=== PATIENT | female | born 1970 | race Caucasian/White ===

== ENCOUNTER 2017-12-10 07:41 | Emergency (ER) | payer MEDICAID ==
[2017-12-10] MEDS: SOD CHLORIDE 0.9% 1,000 ML IV (08:12)
[2017-12-10] MEDS: ONDANSETRON 4 MG INJ IV (08:12)
[2017-12-10] MEDS: morphine 4 MG/ML VIAL IV (08:13)
[2017-12-10 08:31] LABS: ADD MAN DIFF? NO
[2017-12-10 08:36] LABS: WHITE BLOOD COUNT 7.1 10^3/ul (4.8-10.8)
[2017-12-10 08:36] LABS: BASOPHIL # 0.1 10^3/ul (0.0-0.1); BASOPHILS % 0.7 % (0.0-2.0); EOSINOPHILS # 0.3 10^3/ul (0.0-0.5); EOSINOPHILS % 3.8 % (0.0-7.0); HEMATOCRIT 41.6 % (37.0-47.0); LYMPHOCYTES # 2.1 10^3/ul (0.8-2.9); LYMPHOCYTES % 29.5 % (15.0-51.0); MEAN CORPUSCULAR HEMOGLOBIN 29.5 pg (29.0-33.0); MEAN CORPUSCULAR HGB CONC 33.7 g/dl (32.0-37.0); MEAN CORPUSCULAR VOLUME 87.6 fl (82.0-101.0); MEAN PLATELET VOLUME 11.9 fl (7.4-10.4); MONOCYTE # 0.6 10^3/ul (0.3-0.9); MONOCYTES % 8.3 % (0.0-11.0); NEUTROPHIL # 4.1 10^3/ul (1.6-7.5); NEUTROPHILS % 57.4 % (39.0-77.0); PLATELET COUNT 204 10^3/UL (140-415); RED BLOOD COUNT 4.75 10^6/ul (4.20-5.40)
[2017-12-10 08:48] LABS: ADD UMIC NO; UR ASCORBIC ACID NEGATIVE (NEGATIVE); UR BILIRUBIN (Dip) NEGATIVE (NEGATIVE); UR BLOOD (Dip) NEGATIVE (NEGATIVE); UR CLARITY CLEAR (CLEAR); UR COLOR STRAW (YELLOW); UR GLUCOSE (Dip) NEGATIVE (NEGATIVE); UR KETONES (Dip) NEGATIVE (NEGATIVE); UR LEUKOCYTE ESTERASE (Dip) NEGATIVE Leu/ul (NEGATIVE); UR NITRITE (Dip) NEGATIVE (NEGATIVE); UR SPECIFIC GRAVITY (Dip) 1.006 (1.003-1.030); UR TOTAL PROTEIN (Dip) NEGATIVE (NEGATIVE); UR UROBILINOGEN (Dip) NEGATIVE (NEGATIVE)
[2017-12-10 09:01] LABS: ALANINE AMINOTRANSFERASE 42 IU/L (13-69); ALBUMIN 4.6 g/dl (3.3-4.9); ALBUMIN/GLOBULIN RATIO 1.24; ALKALINE PHOSPHATASE 82 IU/L (42-121); ANION GAP 14 (8-16); ASPARTATE AMINO TRANSFERASE 20 IU/L (15-46); BILIRUBIN,INDIRECT 0.4 mg/dl (0-1.1); BILIRUBIN,TOTAL 0.4 mg/dl (0.2-1.3); BLOOD UREA NITROGEN 13 mg/dl (7-20); CALCIUM 9.5 mg/dl (8.4-10.2); CARBON DIOXIDE 28 mmol/L (21-31); CHLORIDE 107 mmol/L (97-110); CREATININE 0.69 mg/dl (0.44-1.00); GLUCOSE 112 mg/dl (70-220); LIPASE 67 U/L (23-300); POTASSIUM 4.9 mmol/L (3.5-5.1); SODIUM 144 mmol/L (135-144); TOTAL PROTEIN 8.3 g/dl (6.1-8.1)
[2017-12-10 09:16] LABS: TROPONIN-I < 0.012 ng/ml (0.000-0.120)
== END 2017-12-10 10:30 | disposition home or self-care (01) ==
LOC: FTE 07:41
DX: R10.12 Left upper quadrant pain (principal); R10.2 Pelvic and perineal pain
CPT/HCPCS: 36415; 74176; 80053; 81003; 83690; 84484; 84703; 85025; 93005; 96374; 96375; 99285-25

== ENCOUNTER 2017-12-11 09:18 | Inpatient (IN) | payer MEDICAID ==
[2017-12-11] MEDS: FAMOTIDINE 20 MG TAB PO ×2 (10:08→20:53)
[2017-12-11] MEDS: LIDOCAINE/MYLANTA 40 ML BTL PO (10:08)
[2017-12-11] MEDS: BELLADONNA/PHENOBARBITAL TAB PO (10:08)
[2017-12-11 10:49] LABS: ADD MAN DIFF? NO
[2017-12-11 10:56] LABS: WHITE BLOOD COUNT 6.5 10^3/ul (4.8-10.8)
[2017-12-11 10:56] LABS: BASOPHILS % 0.6 % (0.0-2.0); EOSINOPHILS # 0.2 10^3/ul (0.0-0.5); EOSINOPHILS % 3.4 % (0.0-7.0); HEMATOCRIT 39.1 % (37.0-47.0); HEMOGLOBIN 13.5 g/dl (12.0-16.0); LYMPHOCYTES # 2.4 10^3/ul (0.8-2.9); LYMPHOCYTES % 36.1 % (15.0-51.0); MEAN CORPUSCULAR HEMOGLOBIN 29.8 pg (29.0-33.0); MEAN CORPUSCULAR HGB CONC 34.5 g/dl (32.0-37.0); MEAN CORPUSCULAR VOLUME 86.3 fl (82.0-101.0); MEAN PLATELET VOLUME 12.1 fl (7.4-10.4); MONOCYTE # 0.5 10^3/ul (0.3-0.9); NEUTROPHIL # 3.4 10^3/ul (1.6-7.5); NEUTROPHILS % 52.7 % (39.0-77.0); PLATELET COUNT 208 10^3/UL (140-415); RED BLOOD COUNT 4.53 10^6/ul (4.20-5.40); RED CELL DISTRIBUTION WIDTH 12.6 % (11.5-14.5)
[2017-12-11 10:59] LABS: ADD UMIC NO; UR ASCORBIC ACID NEGATIVE (NEGATIVE); UR BILIRUBIN (Dip) NEGATIVE (NEGATIVE); UR BLOOD (Dip) NEGATIVE (NEGATIVE); UR CLARITY CLEAR (CLEAR); UR COLOR STRAW (YELLOW); UR GLUCOSE (Dip) NEGATIVE (NEGATIVE); UR KETONES (Dip) NEGATIVE (NEGATIVE); UR LEUKOCYTE ESTERASE (Dip) NEGATIVE Leu/ul (NEGATIVE); UR NITRITE (Dip) NEGATIVE (NEGATIVE); UR SPECIFIC GRAVITY (Dip) 1.006 (1.003-1.030); UR TOTAL PROTEIN (Dip) NEGATIVE (NEGATIVE); UR UROBILINOGEN (Dip) NEGATIVE (NEGATIVE)
[2017-12-11 11:08] LABS: ALANINE AMINOTRANSFERASE 35 IU/L (13-69); ALBUMIN 4.4 g/dl (3.3-4.9); ALBUMIN/GLOBULIN RATIO 1.22; ALKALINE PHOSPHATASE 73 IU/L (42-121); ANION GAP 12 (8-16); ASPARTATE AMINO TRANSFERASE 19 IU/L (15-46); BILIRUBIN,INDIRECT 0.7 mg/dl (0-1.1); BILIRUBIN,TOTAL 0.7 mg/dl (0.2-1.3); BLOOD UREA NITROGEN 12 mg/dl (7-20); CALCIUM 9.6 mg/dl (8.4-10.2); CARBON DIOXIDE 22 mmol/L (21-31); CHLORIDE 109 mmol/L (97-110); CREATININE 0.67 mg/dl (0.44-1.00); GLUCOSE 92 mg/dl (70-220); LIPASE 73 U/L (23-300); POTASSIUM 4.2 mmol/L (3.5-5.1); SODIUM 139 mmol/L (135-144)
[2017-12-11 11:22] LABS: TROPONIN-I < 0.012 ng/ml (0.000-0.120)
[2017-12-11] MEDS: PIPER-TAZO 3.375 GM IV (PMX) 100 ML IVPB (12:12)
[2017-12-11] MEDS: SOD CHLORIDE 0.9% 1,000 ML IV (12:12)
[2017-12-11] MEDS: morphine 2 MG INJ IV (12:12)
[2017-12-11 13:59] LABS: INR 0.86; PROTIME 11.8 Sec (11.9-14.9); PT RATIO 0.9
[2017-12-11 14:00] LABS: PARTIAL THROMBOPLASTIN TIME 29.5 Sec (25.0-35.0)
[2017-12-11] MEDS ORDERED: DOCUSATE SODIUM 100 MG CAP PO (14:00)
[2017-12-11] MEDS ORDERED: hydrALAzine 20 MG INJ IV (14:00)
[2017-12-11] MEDS ORDERED: NACL 0.9% 3 ML SYG IV (14:00)
[2017-12-11] MEDS ORDERED: NITROGLYCERIN (SL) 0.4 MG TAB SL (14:00)
[2017-12-11] MEDS ORDERED: LORAZEPAM 0.5 MG TAB PO (14:00)
[2017-12-11] MEDS ORDERED: ACETAMINOPHEN 325 MG TAB PO ×2 (14:00)
[2017-12-11] MEDS ORDERED: ALBUTEROL/IPRATROPIUM (NEB) 3 ML AMP HHN (14:00)
[2017-12-11] MEDS ORDERED: MAGNESIUM HYDROXIDE 30ML CUP PO (14:00)
[2017-12-11] MEDS ORDERED: ONDANSETRON 4 MG INJ IV ×2 (14:00)
[2017-12-11] MEDS ORDERED: HYDROCODONE/APAP (5/325) TAB PO (14:00)
[2017-12-11] MEDS ORDERED: NA PHOSPHATE/BIPHOS 133 ML ENEMA PR (14:00)
[2017-12-11 14:20] LABS: FREE T4 (FREE THYROXINE) 1.01 ng/dl (0.64-1.79)
[2017-12-11] MEDS: morphine LIQ (10 MG/5 ML) CUP PO ×2 (14:54→19:19)
[2017-12-11] MEDS: SOD CHLORIDE 0.45% 1,000 ML IV (15:20)
[2017-12-11] MEDS: HEPARIN 5,000 UNIT/0.5 ML VIAL SC (20:53)
[2017-12-12] MEDS: SOD CHLORIDE 0.45% 1,000 ML IV ×3 (03:00→18:27)
[2017-12-12 05:10] LABS: ADD MAN DIFF? NO
[2017-12-12 05:28] LABS: ANION GAP 16 (8-16); BLOOD UREA NITROGEN 10 mg/dl (7-20); CALCIUM 9.2 mg/dl (8.4-10.2); CARBON DIOXIDE 26 mmol/L (21-31); CHLORIDE 105 mmol/L (97-110); CREATININE 0.67 mg/dl (0.44-1.00); GLUCOSE 93 mg/dl (70-220); PHOSPHORUS 3.9 mg/dl (2.5-4.9); POTASSIUM 4.2 mmol/L (3.5-5.1); SODIUM 143 mmol/L (135-144)
[2017-12-12 05:31] LABS: BASOPHILS % 0.4 % (0.0-2.0); EOSINOPHILS # 0.3 10^3/ul (0.0-0.5); EOSINOPHILS % 3.5 % (0.0-7.0); HEMATOCRIT 41.1 % (37.0-47.0); HEMOGLOBIN 13.8 g/dl (12.0-16.0); LYMPHOCYTES # 1.9 10^3/ul (0.8-2.9); LYMPHOCYTES % 26.5 % (15.0-51.0); MEAN CORPUSCULAR HEMOGLOBIN 29.4 pg (29.0-33.0); MEAN CORPUSCULAR HGB CONC 33.6 g/dl (32.0-37.0); MEAN CORPUSCULAR VOLUME 87.6 fl (82.0-101.0); MEAN PLATELET VOLUME 11.8 fl (7.4-10.4); MONOCYTE # 0.5 10^3/ul (0.3-0.9); MONOCYTES % 7.6 % (0.0-11.0); NEUTROPHIL # 4.4 10^3/ul (1.6-7.5); NEUTROPHILS % 61.9 % (39.0-77.0); PLATELET COUNT 206 10^3/UL (140-415); RED BLOOD COUNT 4.69 10^6/ul (4.20-5.40); RED CELL DISTRIBUTION WIDTH 12.5 % (11.5-14.5)
[2017-12-12 05:31] LABS: WHITE BLOOD COUNT 7.1 10^3/ul (4.8-10.8)
[2017-12-12 05:32] LABS: CHOL/HDL RATIO 3.5 RATIO; HDL CHOLESTEROL 45 mg/dl (37-92); LDL CHOLESTEROL,CALCULATED 90 mg/dl; TRIGLYCERIDES 125 mg/dl (0-149)
[2017-12-12 05:32] LABS: CHOLESTEROL 160 mg/dl (100-200)
[2017-12-12] MEDS: morphine LIQ (10 MG/5 ML) CUP PO ×3 (06:09→17:38)
[2017-12-12] MEDS: HEPARIN 5,000 UNIT/0.5 ML VIAL SC ×2 (08:41→21:45)
[2017-12-12] MEDS: FAMOTIDINE 20 MG TAB PO ×2 (08:44→21:44)
[2017-12-12 10:44] LABS: HEMOGLOBIN A1C 5.7 % (0-5.9)
[2017-12-12] MEDS ORDERED: ONDANSETRON 4 MG INJ IV (13:30)
[2017-12-12] MEDS: IOHEXOL 14.3 MG(I)/ML (ADULT) BTL PO (17:30)
[2017-12-12] MEDS: SOD CHLORIDE 0.9% 100 ML (19:54)
[2017-12-12] MEDS: IOHEXOL 300MG/ML 150 ML BTL (19:54)
[2017-12-13 05:24] LABS: ADD MAN DIFF? NO
[2017-12-13 05:36] LABS: HEMATOCRIT 41.4 % (37.0-47.0); HEMOGLOBIN 14.2 g/dl (12.0-16.0); LYMPHOCYTES % 23.5 % (15.0-51.0); MEAN CORPUSCULAR HEMOGLOBIN 29.8 pg (29.0-33.0); MEAN CORPUSCULAR HGB CONC 34.3 g/dl (32.0-37.0); MEAN CORPUSCULAR VOLUME 86.8 fl (82.0-101.0); MEAN PLATELET VOLUME 11.5 fl (7.4-10.4); NEUTROPHILS % 64.3 % (39.0-77.0); PLATELET COUNT 206 10^3/UL (140-415); RED BLOOD COUNT 4.77 10^6/ul (4.20-5.40); RED CELL DISTRIBUTION WIDTH 12.2 % (11.5-14.5)
[2017-12-13 05:36] LABS: WHITE BLOOD COUNT 7.6 10^3/ul (4.8-10.8)
[2017-12-13 05:37] LABS: BASOPHILS % 0.5 % (0.0-2.0); EOSINOPHILS # 0.2 10^3/ul (0.0-0.5); LYMPHOCYTES # 1.8 10^3/ul (0.8-2.9); MONOCYTE # 0.6 10^3/ul (0.3-0.9); MONOCYTES % 8.4 % (0.0-11.0); NEUTROPHIL # 4.9 10^3/ul (1.6-7.5)
[2017-12-13 05:42] LABS: ANION GAP 19 (8-16); BLOOD UREA NITROGEN 10 mg/dl (7-20); CALCIUM 9.2 mg/dl (8.4-10.2); CARBON DIOXIDE 24 mmol/L (21-31); CHLORIDE 107 mmol/L (97-110); CREATININE 0.67 mg/dl (0.44-1.00); GLUCOSE 81 mg/dl (70-220); SODIUM 141 mmol/L (135-144)
[2017-12-13 06:32] LABS: POTASSIUM 8.8 mmol/L (3.5-5.1)
[2017-12-13 07:51] LABS: ANION GAP 17 (8-16); BLOOD UREA NITROGEN 10 mg/dl (7-20); CALCIUM 9.2 mg/dl (8.4-10.2); CARBON DIOXIDE 22 mmol/L (21-31); CHLORIDE 107 mmol/L (97-110); CREATININE 0.65 mg/dl (0.44-1.00); GLUCOSE 79 mg/dl (70-220); SODIUM 141 mmol/L (135-144)
[2017-12-13 07:59] LABS: POTASSIUM 5.2 mmol/L (3.5-5.1)
[2017-12-13 08:09] LABS: B-TYPE NATRIURETIC PEPTIDE < 11 PG/ML (0-125)
[2017-12-13] MEDS: FAMOTIDINE 20 MG TAB PO ×2 (09:20→20:59)
[2017-12-13] MEDS: HEPARIN 5,000 UNIT/0.5 ML VIAL SC ×2 (09:23→21:04)
[2017-12-13] MEDS: DEXTROSE 50% 50 ML SYRINGE IV (10:58)
[2017-12-13] MEDS: NA POLYST SULFON 15 GM/60 ML BTL PO ×2 (10:59→19:25)
[2017-12-13] MEDS: SOD CHLORIDE 0.45% 1,000 ML IV (11:04)
[2017-12-13 12:52] LABS: ALANINE AMINOTRANSFERASE 36 IU/L (13-69); ALBUMIN 4.6 g/dl (3.3-4.9); ALKALINE PHOSPHATASE 74 IU/L (42-121); ASPARTATE AMINO TRANSFERASE 26 IU/L (15-46); BILIRUBIN,INDIRECT 0.5 mg/dl (0-1.1); BILIRUBIN,TOTAL 0.5 mg/dl (0.2-1.3); TOTAL PROTEIN 7.7 g/dl (6.1-8.1)
[2017-12-13 17:12] LABS: ANION GAP 18 (8-16); BLOOD UREA NITROGEN 10 mg/dl (7-20); CALCIUM 9.3 mg/dl (8.4-10.2); CARBON DIOXIDE 21 mmol/L (21-31); CHLORIDE 108 mmol/L (97-110); CREATININE 0.62 mg/dl (0.44-1.00); GLUCOSE 89 mg/dl (70-220); POTASSIUM 5.3 mmol/L (3.5-5.1); SODIUM 142 mmol/L (135-144)
[2017-12-13] MEDS: morphine LIQ (10 MG/5 ML) CUP PO (19:14)
[2017-12-13 20:15] LABS: OCCULT BLOOD STOOL NEGATIVE (NEGATIVE)
[2017-12-14] MEDS: SOD CHLORIDE 0.45% 1,000 ML IV (00:39)
[2017-12-14 05:37] LABS: ADD MAN DIFF? NO
[2017-12-14 05:39] LABS: BASOPHILS % 0.4 % (0.0-2.0); EOSINOPHILS # 0.1 10^3/ul (0.0-0.5); EOSINOPHILS % 1.6 % (0.0-7.0); HEMATOCRIT 41.3 % (37.0-47.0); HEMOGLOBIN 14.2 g/dl (12.0-16.0); LYMPHOCYTES # 1.9 10^3/ul (0.8-2.9); LYMPHOCYTES % 23.4 % (15.0-51.0); MEAN CORPUSCULAR HEMOGLOBIN 29.5 pg (29.0-33.0); MEAN CORPUSCULAR HGB CONC 34.4 g/dl (32.0-37.0); MEAN CORPUSCULAR VOLUME 85.7 fl (82.0-101.0); MEAN PLATELET VOLUME 11.5 fl (7.4-10.4); MONOCYTE # 0.7 10^3/ul (0.3-0.9); MONOCYTES % 8.4 % (0.0-11.0); NEUTROPHIL # 5.3 10^3/ul (1.6-7.5); NEUTROPHILS % 65.9 % (39.0-77.0); PLATELET COUNT 233 10^3/UL (140-415); RED BLOOD COUNT 4.82 10^6/ul (4.20-5.40); RED CELL DISTRIBUTION WIDTH 12.6 % (11.5-14.5)
[2017-12-14 06:11] LABS: ANION GAP 16 (8-16); BLOOD UREA NITROGEN 10 mg/dl (7-20); CALCIUM 9.1 mg/dl (8.4-10.2); CARBON DIOXIDE 23 mmol/L (21-31); CHLORIDE 108 mmol/L (97-110); GLUCOSE 108 mg/dl (70-220); POTASSIUM 4.1 mmol/L (3.5-5.1); SODIUM 143 mmol/L (135-144)
[2017-12-14] MEDS: FAMOTIDINE 20 MG TAB PO (09:29)
[2017-12-14] MEDS: HEPARIN 5,000 UNIT/0.5 ML VIAL SC (09:31)
[2017-12-14 17:10] LABS: HEPATITIS B SURFACE ANTIGEN NEGATIVE (NEGATIVE)
[2017-12-14 17:37] LABS: HEPATITIS B SURFACE ANTIBODY NEGATIVE (NEGATIVE)
== END 2017-12-14 18:00 | disposition home or self-care (01) | DRG 446 ==
LOC: FTE 09:18 → MS1 13:47
DX: K80.20 Calculus of gallbladder without cholecystitis without obstruction (principal); E66.9 Obesity, unspecified; K76.0 Fatty (change of) liver, not elsewhere classified; K82.8 Other specified diseases of gallbladder; Z68.30 Body mass index [BMI] 30.0-30.9, adult
CPT/HCPCS: 74177; 74181; 76705; 80048; 80053; 80061; 80076; 81003; 82270; 83036; 83690; 83735; 83880; 84100; 84439; 84443; 84484; 85025; 85610; 85730; 86706; 86708; 86803; 87340; 93005; 96374; 96375; 99285-25